=== PATIENT | male | born 1935 | race Hispanic/Latino ===

== ENCOUNTER → 2024-01-12 | Outpatient (CLI) | payer MEDICARE ==
[~2024-01-12] MED LIST: ALPR0.25 PO; ASPI-556 PO; BUPR-561 PO; DOCU-116 PO; DUTA.5 PO; FLUD0.1T2 PO; ISOS30TA92 PO; METO-391 PO; OMEP40CA21 PO; ROSU10TA22 PO; TAMS0.4C32 PO; TRIAMETERENE/HCTZ PO
== END | disposition home or self-care (01) ==
LOC: SHCH 11:14
PROVIDERS: ATTEND Internal Medicine Cardiovascular Disease
DX: I82.622 Acute embolism and thrombosis of deep veins of left upper extremity (principal)
CPT/HCPCS: 93971